=== PATIENT | female | born 1980 | race Caucasian/White ===

== ENCOUNTER → 2023-05-26 09:28 | Outpatient (REF) | payer MEDICARE, MEDICAID, SELFPAY | LOC: RAD 09:28 | PROVIDERS: ATTENDING PHYSICIAN Podiatrist Foot Surgery; FAMILY PHYSICIAN Nurse Practitioner Family | DX: M79.672 Pain in left foot (principal); M79.671 Pain in right foot | CPT/HCPCS: 73630 ==

== ENCOUNTER → 2023-08-17 11:10 | Outpatient (REF) | payer MEDICARE, MEDICAID, SELFPAY | LOC: WDC 11:10 | PROVIDERS: ATTENDING PHYSICIAN Nurse Practitioner Family | DX: Z12.31 Encounter for screening mammogram for malignant neoplasm of breast (principal) | CPT/HCPCS: 77063; 77067 ==

== ENCOUNTER → 2024-04-18 13:53 | Outpatient (REF) | payer MEDICARE, MEDICAID, SELFPAY | LOC: WDC 13:53 | PROVIDERS: ATTENDING PHYSICIAN Nurse Practitioner Family; REFERRING PHYSICIAN Obstetrics & Gynecology | DX: R92.8 Other abnormal and inconclusive findings on diagnostic imaging of breast (principal) | CPT/HCPCS: 77061; 77065 ==

== ENCOUNTER → 2024-04-23 13:11 | Outpatient (REF) | payer MEDICARE, MEDICAID, SELFPAY | LOC: RAD 13:11 | PROVIDERS: ATTENDING PHYSICIAN Urology; FAMILY PHYSICIAN Nurse Practitioner Family | DX: N31.9 Neuromuscular dysfunction of bladder, unspecified (principal) | CPT/HCPCS: 76770 ==

== ENCOUNTER → 2024-09-06 13:10 | Outpatient (REF) | payer MEDICARE, MEDICAID, SELFPAY | LOC: RAD 13:10 | PROVIDERS: ATTENDING PHYSICIAN Nurse Practitioner Family | DX: R22.42 Localized swelling, mass and lump, left lower limb (principal) | CPT/HCPCS: 93971 ==

== ENCOUNTER → 2024-10-17 13:43 | Outpatient (REF) | payer MEDICARE, MEDICAID, SELFPAY | LOC: WDC 13:43 | PROVIDERS: ATTENDING PHYSICIAN Obstetrics & Gynecology | DX: Z12.31 Encounter for screening mammogram for malignant neoplasm of breast (principal) | CPT/HCPCS: 77063; 77067 ==

== ENCOUNTER 2024-10-20 15:08 | Emergency (ER) | payer MEDICARE, MEDICAID, SELFPAY ==
[2024-10-20 15:12] VITALS: BP 126/86
--- NOTE | 2024-10-20 15:50 | ED.GENMED ---
History of Present Illness
General
Chief Complaint: Rectal Bleeding
Source: records and landcare officer
Time Seen by Provider: 10/20/24 15:37
History of Present Illness
History of Present Illness:
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 Patient has been experiencing diarrhea for the past 3
days. She was seen at urgent care this afternoon and was told it was likely viral. She was discharged and caregiver noticed bright red blood mixed in with her stool while changing her after she went home. When asked about abdominal pain, patient
states she has pain sometimes. No fevers or vomiting. She is at baseline mental status per caregiver.
Past History
Past History
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
related to UTI with VDRF related to alveolar hemorrhage December 2019) and Other (DVT 2018); Negative Asthma, HTN, Hypercholesterolemia or NIDDM
ED Past Surgical History: Urological (history of Suprapubic catheter) and Other (Vagal Nerve Stimulator implantation 2014 with battery change 2016)
Social History
Tobacco: Non-smoker
Alcohol: None
Drug: None
Personal: Single
Living: with roommate (Lives in a community living arrangement with 24-hour staff)
Employment: Disabled
Family History
Family History: Other (reviewed and non-contributory)
Phy Exam
General Physical Exam
General Presentation: no apparent distress
General Skin: warm and dry
General Habitus: frail
General Mental: alert
General Chronic Disability: contractures and non ambulatory
ENT Exam
ENT Exam: normocephalic
Pulmonary Exam
Pulmonary Exam: no respiratory distress
Gastrointestinal Exam
Gastrointestinal Exam: non tender, soft and non distended
Stool: other (Stool brown, hemoccult negative)
Neurological Exam
Neurological Exam: alert and other (Quadriplegia with contractures in upper extremities)
Skin Exam
Skin Exam: normal color and warm/dry
Course
Orders/Labs/Results
Orders:
Orders
10/20/24 15:50
CT Abd/pelvis W Iv Cont Urgent
Comment:
Reason For Exam: rectal bleeding, diarrhea, hx of UC
10/20/24 15:57
Test Result ONCE
10/20/24 16:12
Complete Blood Count/With Diff Urgent
PTT Urgent
Prothrombin Time Urgent
10/20/24 16:29
Baclofen [Lioresal] 10 mg PO ONCE ONE
10/20/24 17:29
C-Reactive Protein Urgent
Comprehensive Metabolic Panel Urgent
HCG, Serum Qualitative Screen Urgent
10/20/24 17:55
Midodrine [ProAmatine] 10 mg PO NOW STA
Abnormal Lab Results
10/20/24 10/20/24
16:12 17:29
MCV 102.9 H fL
(81.0-99.0)
MCH 32.1 H pg
(27.0-31.0)
MCHC 31.2 L g/dL
(33.0-37.0)
Abs Immat Gran (auto) 0.1 H 10^3/uL
(0-0.05)
Absolute Lymphs (auto) 0.7 L 10^3/uL
(1.2-3.4)
Absolute Monos (auto) 0.8 H 10^3/uL
(0.1-0.6)
Immature Gran % 2.2 H %
(0-0.5)
Lymphocytes % 12.7 L %
(20.5-51.1)
Monocytes % 13.9 H %
(1.7-9.3)
Chloride 108 H mmol/L
(98-107)
Carbon Dioxide 31 H mmol/L
(22-30)
Creatinine 0.3 L mg/dL
(0.6-1.0)
10/20/24 16:12
10/20/24 17:29
Vital Signs
Initial and Last Documented VS:
Initial Vital Signs
Temp Pulse Resp BP Pulse Ox
98.3 F 98 18 126/86 99
10/20/24 15:12 10/20/24 15:12 10/20/24 15:12 10/20/24 15:12 10/20/24 15:12
Last Documented Vital Signs
Temp Pulse Resp BP Pulse Ox
98.3 F 98 18 120/85 96
10/20/24 15:12 10/20/24 20:03 10/20/24 20:03 10/20/24 20:00 10/20/24 19:59
MDM/Problems Addressed
Differential Diagnosis Includes:
44yoF here after caregiver found blood in diaper this afternoon. Having diarrhea x 3 days. Hx of ulcerative colitis and DVT on Xarelto. At baseline mental status per caregiver. VSS. She is non-toxic appearing. Abdominal exam is fairly benign. Stool
is brown on rectal exam and hemoccult is negative. Differential diagnosis includes but is not limited to: ulcerative colitis flare, hemorrhoidal bleeding, diverticular bleeding
Initial ED plan: Check CBC, CMP, coags, CRP, stool testing, and CT abdomen.
*Pulse Oximetry
SaO2: 99
Oxygen Mode of Delivery: Room air
Patient hypoxic: no (99%)
*Critical Care Note
Total Time (30-74mins, 75-104mins- exclusive of procedures): Not Applicable
Update Note
Update Note:
Labs reassuring. Hemoglobin is normal at 14.5. CRP <5 making UC flare unlikely. CT is negative for acute findings. 'Cannot exclude some mild thickening of portions of the large bowel.' There is a subcentimeter R renal lesion seen incidentally
which could represent a complex cyst or solid mass, cannot exclude malignancy. Caregiver notified of result and copy of radiology report provided. No indication for hospitalization as rectal exam showed no active bleeding and workup is reassuring.
Advised follow-up with PCP and gastroenterology. ED return precautions reviewed with caregiver. Patient discharged in stable condition.
ED Attending Note
-
Portions of this chart may have been created with voice recognition software.� Occasional wrong word or��sound alike� substitutions may have occurred due to the inherent limitations of voice recognition software.
Discharge Plan
Departure
Patient Disposition: Home (Routine Discharge)
Date of Disposition: 10/20/24
Time of Disposition: 19:49
Patient with high blood pressure during this ER visit?: No
Discharge Problem:
Blood in diaper, Diarrhea, Lesion of right [place] kidney
Instructions: Acute Diarrhea
Prescriptions:
No Action
docusate sodium 100 MG capsule
100 mg PO DAILYPRN PRN (Reason: constipation)
Metamucil Fiber (aspartame) 1 PACKET powder in packet
1 packet PO DAILYPRN PRN (Reason: CONSTIPATION)
sennosides [senna] 1 TABLET tablet
2 tab PO DAILYPRN PRN (Reason: constipation)
pantoprazole 40 MG tablet,delayed release (DR/EC)
40 mg PO DAILY Qty: 30 0RF
lamotrigine [Lamictal] 150 MG tablet
150 mg PO BID@0800,2000
baclofen 10 MG tablet
10 mg PO QID
zonisamide 100 MG capsule
400 mg PO DAILY
fluticasone propionate 1 SPRAY spray,suspension
1 spray intranasal DAILY
Balmex Adult Care 1 APPLIC cream
1 applic topical QID
Xarelto 10 MG tablet
10 mg PO QPM
ketoconazole 2 % Cream
1 applic TOPICAL DAILY
hydrocortisone [Anusol-HC] 2.5 % Cream With Perineal Applicator
1 applic [place] BIDPRN PRN (Reason: hemorrhoids)
bisacodyl [Dulcolax (bisacodyl)] 10 mg Suppository
10 mg AZ QPM
ceramides 1,3,6-II [CeraVe] Cream
1 applic TOPICAL DAILY@0800
mesalamine [Apriso] 0.375 gram Capsule,Extended Release 24hr
1.5 g PO DAILY
cranberry extract [Ellura] 200 mg Capsule
200 mg PO DAILY
tamsulosin 0.4 mg Capsule
0.4 mg PO QPM
pramoxine [Sarna Sensitive] 1 % Lotion
1 applic TOPICAL TIDPRN PRN (Reason: rash on chest and feet)
midodrine 10 mg Tablet
10 mg PO TID@0800,1300,1800
acetaminophen 325 mg Tablet
650 mg PO Q4HPRN PRN (Reason: mild pain)
hydrocortisone 1 % Ointment
1 applic TOPICAL DAILYPRN PRN (Reason: itch in genital area)
zinc oxide 20 % ointment
1 applic TOPICAL DAILY@0800
methenamine hippurate 1 gram tablet
1 g PO BID
ferrous sulfate [FeroSul] 325 mg (65 mg iron) tablet
325 mg PO Q7D
gabapentin 100 mg capsule
100 mg PO BID@799,1999
ergocalciferol (vitamin D2) 1,250 mcg (50,000 unit) capsule
1,250 mcg PO Q7D
potassium citrate [Urocit-K 5] 5 mEq (540 mg) Tablet Extended Release
15 meq PO BID
aripiprazole 5 mg tablet
5 mg PO QHS
mesalamine 1,000 mg Suppository
1 g [place] QPM
levetiracetam 1,000 mg tablet
1,000 mg PO BID@799,1999
Referrals:
Mervat Augustine CRNP [Family Provider, Internal Medicine]
Activity Restrictions/Additional Instructions:
Please call on Tuesday to schedule follow-up appointments with gastroenterology as well as PCP for the lesion seen on the right kidney.
Return to the ER with any new or worsening symptoms.
Interventions
Interventions:
*Risk Screen - Suicide Last Done: 10/20/24 15:12
*General Assessment Last Done: 10/20/24 15:12
*Neglect/Abuse Screening Last Done: 10/20/24 16:00
*ED- Fall Risk Assessment Last Done: 10/20/24 16:00
*ED COVID-19 Vaccine History Last Done: 10/20/24 16:00
*Nursing Disposition Last Done: 10/20/24 20:03
OQ-Adavyj-Zppjqbhusw Assessment Last Done: 10/20/24 16:00
ED- Cardiac Assessment Last Done: 10/20/24 16:00
ED- Pulmonary Assessment Last Done: 10/20/24 16:00
Discharge Date and Time
Discharge Date/Time: 10/20/24 20:09
Print Language: HUNGARIAN
[2024-10-20 16:22] LABS: Hematocrit 46.5 % (37.0-47.0); Hemoglobin 14.5 g/dL (12.0-16.0); Mean Corp Hgb Conc. 31.2 g/dL (33.0-37.0); Mean Corpuscular Volume 102.9 fL (81.0-99.0); Nucleated Red Blood Cells % 0 %; Platelet Count 255 10^3/uL (130-400); Red Cell Dist. Width 13.5 % (11.5-14.5)
[2024-10-20 16:34] LABS: INR 1.01; PT 13.6 Sec (11.4-14.6)
[2024-10-20 16:35] LABS: APTT 25.9 Sec (23.4-35.0)
[2024-10-20] MEDS: LIORESAL 10 MG PO (16:54)
[2024-10-20 17:54] LABS: HCG, Serum Qualitative Screen Negative
[2024-10-20 17:59] LABS: C-Reactive Protein < 5.00 mg/L (0.0-10.00)
[2024-10-20 18:03] LABS: ALT (SGPT) 24 U/L (0-35); AST (SGOT) 14 U/L (14-36); Albumin 3.7 g/dl (3.5-5.0); Alkaline Phosphatase 61 U/L (38-126); Blood Urea Nitrogen 13 mg/dl (7-17); Calcium 9.1 mg/dl (8.4-10.2); Carbon Dioxide 31 mmol/L (22-30); Chloride 108 mmol/L (98-107); Glucose 91 mg/dl (70-99); Potassium 4.2 mmol/L (3.5-5.1); Sodium 142 mmol/L (135-145); Total Protein 6.3 g/dl (6.3-8.2); eGFR > 60.00
[2024-10-20 19:21] VITALS: BP 121/77
[2024-10-20 20:00] VITALS: BP 120/85
== END 2024-10-20 20:09 | disposition home or self-care (01) ==
LOC: EMR 15:08
PROVIDERS: Physician Assistant; EMERGENCY PHYSICIAN Emergency Medicine; FAMILY PHYSICIAN Nurse Practitioner Family
DX: R19.7 Diarrhea, unspecified (principal); N28.9 Disorder of kidney and ureter, unspecified; G80.9 Cerebral palsy, unspecified; K51.90 Ulcerative colitis, unspecified, without complications; G47.33 Obstructive sleep apnea (adult) (pediatric); Z86.718 Personal history of other venous thrombosis and embolism; Z79.01 Long term (current) use of anticoagulants; Z79.899 Other long term (current) drug therapy
CPT/HCPCS: 99284; 74177; 80053; 84703; 85025; 85610; 85730; 86140; Q9967

== ENCOUNTER 2024-12-13 21:12 | Emergency (ER) | payer MEDICARE, MEDICAID, SELFPAY ==
[2024-12-13 21:21] VITALS: BP 130/85
--- NOTE | 2024-12-14 00:32 | ED.GENMED ---
History of Present Illness
General
Chief Complaint: Fall
Source: patient
Exam Limitations: none
Time Seen by Provider: 12/13/24 23:46
Nursing documentation reviewed up to this point in time: agreed with
History of Present Illness
History of Present Illness:
44-year-old female past medical history of cerebral palsy, quadriplegia presenting to the emergency department today after a mechanical fall from [employer] lift hitting her left arm denies adamantly any head trauma neck pain or additional trauma or
injuries. Was witnessed by the home health aide
Past History
Past History
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
related to UTI with VDRF related to alveolar hemorrhage December 2019) and Other (DVT 2018); Negative Asthma, HTN, Hypercholesterolemia or NIDDM
ED Past Surgical History: Urological (history of Suprapubic catheter) and Other (Vagal Nerve Stimulator implantation 2014 with battery change 2016)
Social History
Tobacco: Non-smoker
Alcohol: None
Drug: None
Personal: Single
Living: with roommate (Lives in a community living arrangement with 24-hour staff)
Employment: Disabled
Family History
Family History: Other (reviewed and non-contributory)
Review of Systems
Review of Systems
Allergies reviewed?: Yes
All Other Systems: ROS reviewed and negative except as documented in HPI and ROS
Phy Exam
Physical Exam
Physical Exam:
GENERAL: Alert , in no apparent distress
EYE: pupils equal and reactive
NECK: Supple, no significant adenopathy.
ENT: o/p clr, mmm.
CARDIAC: Regular rate and rhythm .
LUNGS: Clear breath sounds bilaterally, no acute respiratory distress, no wheezes/rales/rhonchi
ABDOMEN: Soft, without focal tenderness, no r/g, no cvat
NEUROLOGICAL: Alert and oriented,
SKIN: Warm and dry, skin intact.
MUSCULOSKELETAL: Very mild discomfort to the left upper arm and lateral shoulder no edema, well perfused.
Course
Orders/Labs/Results
Orders:
Orders
12/14/24 00:30
CR Elbow - Left Min 3 Views Urgent
Comment:
Reason For Exam: fall hit left arm
CR Shoulder, Trauma - Left Urgent
Comment:
Reason For Exam: fall hit arm/shoulder
Vital Signs
Initial and Last Documented VS:
Initial Vital Signs
Temp Pulse Resp BP Pulse Ox
97.5 F 94 16 130/85 95
12/13/24 21:21 12/13/24 21:21 12/13/24 21:21 12/13/24 21:21 12/13/24 21:21
Last Documented Vital Signs
Temp Pulse Resp BP Pulse Ox
97.5 F 94 16 130/85 95
12/13/24 21:21 12/13/24 21:21 12/13/24 21:21 12/13/24 21:21 12/14/24 00:33
MDM/Problems Addressed
MDM/Problems Addressed:
44-year-old female with history of cerebral palsy presenting after falling from a [employer] lift. Hit her left arm denies any additional trauma was witnessed by the home health aide. She denies any significant symptoms at this time but does have some
vague discomfort to palpation to the left lateral upper arm and shoulder region. X-rays without evidence of fracture. Patient with likely soft tissue injury stable for discharge return precautions given. Patient does take a blood thinner however
she adamantly denies any head trauma and also this was confirmed with the patient's caregiver.
*Pulse Oximetry
SaO2: 95
Oxygen Mode of Delivery: Room air
Patient hypoxic: no (95)
*Critical Care Note
Total Time (30-74mins, 75-104mins- exclusive of procedures): Not Applicable
ED Attending Note
-
Portions of this chart may have been created with voice recognition software.� Occasional wrong word or��sound alike� substitutions may have occurred due to the inherent limitations of voice recognition software.
Discharge Plan
Departure
Patient Disposition: Home (Routine Discharge)
Date of Disposition: 12/14/24
Time of Disposition: 01:46
Patient with high blood pressure during this ER visit?: No
Condition: Good
Covid-19: Not Applicable
Discharge Problem:
Fall, Arm contusion
Instructions: Contusion (DC)
Prescriptions:
No Action
docusate sodium 100 MG capsule
100 mg PO DAILYPRN PRN (Reason: constipation)
Metamucil Fiber (aspartame) 1 PACKET powder in packet
1 packet PO DAILYPRN PRN (Reason: CONSTIPATION)
sennosides [senna] 1 TABLET tablet
2 tab PO DAILYPRN PRN (Reason: constipation)
pantoprazole 40 MG tablet,delayed release (DR/EC)
40 mg PO DAILY Qty: 30 0RF
lamotrigine [Lamictal] 150 MG tablet
150 mg PO BID@0800,2000
baclofen 10 MG tablet
10 mg PO QID
zonisamide 100 MG capsule
400 mg PO DAILY
fluticasone propionate 1 SPRAY spray,suspension
1 spray intranasal DAILY
Balmex Adult Care 1 APPLIC cream
1 applic topical QID
Xarelto 10 MG tablet
10 mg PO QPM
ketoconazole 2 % Cream
1 applic TOPICAL DAILY
hydrocortisone [Anusol-HC] 2.5 % Cream With Perineal Applicator
1 applic IN BIDPRN PRN (Reason: hemorrhoids)
bisacodyl [Dulcolax (bisacodyl)] 10 mg Suppository
10 mg IN QPM
ceramides 1,3,6-II [CeraVe] Cream
1 applic TOPICAL DAILY@0800
mesalamine [Apriso] 0.375 gram Capsule,Extended Release 24hr
1.5 g PO DAILY
cranberry extract [Ellura] 200 mg Capsule
200 mg PO DAILY
tamsulosin 0.4 mg Capsule
0.4 mg PO QPM
pramoxine [Sarna Sensitive] 1 % Lotion
1 applic TOPICAL TIDPRN PRN (Reason: rash on chest and feet)
midodrine 10 mg Tablet
10 mg PO TID@0800,1300,1800
acetaminophen 325 mg Tablet
650 mg PO Q4HPRN PRN (Reason: mild pain)
hydrocortisone 1 % Ointment
1 applic TOPICAL DAILYPRN PRN (Reason: itch in genital area)
zinc oxide 20 % ointment
1 applic TOPICAL DAILY@0800
methenamine hippurate 1 gram tablet
1 g PO BID
ferrous sulfate [FeroSul] 325 mg (65 mg iron) tablet
325 mg PO Q7D
gabapentin 100 mg capsule
100 mg PO BID@799,1999
ergocalciferol (vitamin D2) 1,250 mcg (50,000 unit) capsule
1,250 mcg PO Q7D
potassium citrate [Urocit-K 5] 5 mEq (540 mg) Tablet Extended Release
15 meq PO BID
aripiprazole 5 mg tablet
5 mg PO QHS
mesalamine 1,000 mg Suppository
1 g IN QPM
levetiracetam 1,000 mg tablet
1,000 mg PO BID@799,1999
Referrals:
Mervat Augustine CRNP [Family Provider, Internal Medicine]
Activity Restrictions/Additional Instructions:
Jeannine came to the [facility] today after an injury to her arm. Here she had a reassuring assessment. Please rest and ice the area. Return for any worsening, new or concerning symptoms.
Interventions
Interventions:
*Risk Screen - Suicide Last Done: 12/13/24 21:23
*General Assessment Last Done: 12/13/24 21:23
*Neglect/Abuse Screening Last Done: 12/13/24 21:23
*ED COVID-19 Vaccine History Last Done: 12/13/24 21:23
*ED Influenza Vaccine History Last Done: 12/13/24 21:23
ED-Musculoskeletal Assessment Last Done: 12/14/24 00:00
ED- Neurological Assessment Last Done: 12/14/24 00:00
ED-Skin Assessment Last Done: 12/14/24 00:00
Discharge Date and Time
Print Language: SAMI
[2024-12-14 01:49] VITALS: BP 101/72
== END 2024-12-14 01:52 | disposition home or self-care (01) ==
LOC: EMR 21:12
PROVIDERS: EMERGENCY PHYSICIAN Emergency Medicine; FAMILY PHYSICIAN Nurse Practitioner Family
DX: S40.022A Contusion of left upper arm, initial encounter (principal); W17.89XA Other fall from one level to another, initial encounter; Y92.129 Unspecified place in nursing home as the place of occurrence of the external cause; G80.8 Other cerebral palsy; G93.49 Other encephalopathy; K51.90 Ulcerative colitis, unspecified, without complications; I45.6 Pre-excitation syndrome; F41.9 Anxiety disorder, unspecified; Z79.01 Long term (current) use of anticoagulants; Z96.82 Presence of neurostimulator; Z86.718 Personal history of other venous thrombosis and embolism
CPT/HCPCS: 99283; 73030; 73080